=== PATIENT | female | born 1950 | race African-American/Black ===

== ENCOUNTER 2020-11-16 06:44 | Outpatient (REF) | payer MEDICARE, MEDICAID, SELFPAY ==
[2020-11-16 07:08] LABS: Hematocrit 32.2 % (37-47); Hemoglobin 10.4 g/dl (12.0-16.0); Mean Corpuscular HGB Conc 32.3 g/dl (31.0-35.0); Mean Corpuscular Hemoglobin 30.7 pg (27.0-33.0); Mean Platelet Volume 11.2 fL (9.4-12.3); Platelet Count 243 X10*3/uL (160-400); Red Blood Count 3.39 X10*6/uL (4.20-5.50); Red Cell Distribution Width 18.9 % (11.0-16.0); White Blood Count 5.9 X10*3/uL (4.8-10.8)
[2020-11-16 07:27] LABS: Anion Gap 16 (12-20); Blood Urea Nitrogen 22 mg/dL (9-16); Calcium 8.1 mg/dL (8.4-10.2); Carbon Dioxide 29 mmol/L (22-29); Chloride 98 mmol/L (96-108); Estimated Glomerular Filt Rate 11; Glucose Random 83 mg/dL (60-115); Potassium 4.1 mmol/L (3.3-5.1); Sodium 139 mmol/L (135-145)
== END 2020-11-16 06:45 | disposition home or self-care (01) ==
LOC: HO.MMNH1L 06:44
PROVIDERS: Visit Provider Family Medicine
DX: I11.0 Hypertensive heart disease with heart failure (principal); I50.9 Heart failure, unspecified
CPT/HCPCS: 36415; 80048; 85027

== ENCOUNTER 2020-11-23 00:35 | Outpatient (REF) | payer SELFPAY ==
[2020-11-23 07:48] LABS: Hematocrit 34.3 % (37-47); Mean Corpuscular HGB Conc 32.1 g/dl (31.0-35.0); Mean Corpuscular Hemoglobin 30.6 pg (27.0-33.0); Mean Corpuscular Volume 95.3 fL (80-98); Platelet Count 257 X10*3/uL (160-400); Red Cell Distribution Width 19.5 % (11.0-16.0); White Blood Count 6.1 X10*3/uL (4.8-10.8)
[2020-11-23 07:58] LABS: NRBC Pct Auto 1.3 /100WBC (0.0-0.2)
[2020-11-23 09:24] LABS: Anion Gap 17 (12-20); Blood Urea Nitrogen 33 mg/dL (9-16); Calcium 8.4 mg/dL (8.4-10.2); Carbon Dioxide 30 mmol/L (22-29); Chloride 97 mmol/L (96-108); Estimated Glomerular Filt Rate 8; Glucose Random 76 mg/dL (60-115); Potassium 4.6 mmol/L (3.3-5.1); Sodium 139 mmol/L (135-145)
== END 2020-11-23 00:36 | disposition home or self-care (01) ==
LOC: HO.MMNH1L 00:35
PROVIDERS: Visit Provider Family Medicine
DX: I11.0 Hypertensive heart disease with heart failure (principal); I50.9 Heart failure, unspecified
CPT/HCPCS: 36415; 80048; 85027; 85060

== ENCOUNTER 2020-11-30 10:36 | Outpatient (REF) | payer SELFPAY ==
[2020-11-30 07:53] LABS: Hematocrit 34.2 % (37-47); Hemoglobin 11.1 g/dl (12.0-16.0); Mean Corpuscular HGB Conc 32.5 g/dl (31.0-35.0); Mean Corpuscular Hemoglobin 31.2 pg (27.0-33.0); Mean Corpuscular Volume 96.1 fL (80-98); Platelet Count 234 X10*3/uL (160-400); Red Blood Count 3.56 X10*6/uL (4.20-5.50); Red Cell Distribution Width 20.9 % (11.0-16.0); White Blood Count 5.9 X10*3/uL (4.8-10.8)
[2020-11-30 08:27] LABS: NRBC Pct Auto 1.2 /100WBC (0.0-0.2)
[2020-11-30 10:16] LABS: Anion Gap 18 (12-20); Blood Urea Nitrogen 20 mg/dL (9-16); Calcium 8.2 mg/dL (8.4-10.2); Carbon Dioxide 27 mmol/L (22-29); Chloride 98 mmol/L (96-108); Estimated Glomerular Filt Rate 11; Glucose Random 99 mg/dL (60-115); Potassium 3.9 mmol/L (3.3-5.1); Sodium 139 mmol/L (135-145)
== END 2020-11-30 10:37 | disposition home or self-care (01) ==
LOC: HO.MMNH2L 10:36
PROVIDERS: Visit Provider Family Medicine
DX: I11.0 Hypertensive heart disease with heart failure (principal); I50.9 Heart failure, unspecified
CPT/HCPCS: 36415; 80048; 85027

== ENCOUNTER 2020-12-07 00:35 | Outpatient (REF) | payer SELFPAY ==
[2020-12-07 08:07] LABS: Hematocrit 34.6 % (37-47); Mean Corpuscular HGB Conc 31.8 g/dl (31.0-35.0); Mean Corpuscular Volume 97.5 fL (80-98); Mean Platelet Volume 11.3 fL (9.4-12.3); NRBC Pct Auto 0.7 /100WBC (0.0-0.2); Platelet Count 198 X10*3/uL (160-400); Red Blood Count 3.55 X10*6/uL (4.20-5.50); Red Cell Distribution Width 21.2 % (11.0-16.0); White Blood Count 5.8 X10*3/uL (4.8-10.8)
[2020-12-07 08:32] LABS: Anion Gap 19 (12-20); Blood Urea Nitrogen 16 mg/dL (9-16); Carbon Dioxide 27 mmol/L (22-29); Chloride 97 mmol/L (96-108); Estimated Glomerular Filt Rate 13; Glucose Random 74 mg/dL (60-115); Potassium 3.9 mmol/L (3.3-5.1); Sodium 139 mmol/L (135-145)
== END 2020-12-07 00:36 | disposition home or self-care (01) ==
LOC: HO.MMNH2L 00:35
PROVIDERS: Visit Provider Family Medicine
DX: I95.9 Hypotension, unspecified (principal); I50.9 Heart failure, unspecified
CPT/HCPCS: 36415; 80048; 85027

== ENCOUNTER 2020-12-14 01:07 | Outpatient (REF) | payer SELFPAY ==
[2020-12-14 06:49] LABS: Hematocrit 33.8 % (37-47); Hemoglobin 10.8 g/dl (12.0-16.0); Mean Corpuscular Hemoglobin 30.8 pg (27.0-33.0); Mean Corpuscular Volume 96.3 fL (80-98); Mean Platelet Volume 11.4 fL (9.4-12.3); NRBC Pct Auto 0.5 /100WBC (0.0-0.2); Platelet Count 180 X10*3/uL (160-400); Red Blood Count 3.51 X10*6/uL (4.20-5.50); Red Cell Distribution Width 20.7 % (11.0-16.0); White Blood Count 6.3 X10*3/uL (4.8-10.8)
[2020-12-14 07:57] LABS: Anion Gap 14 (12-20); Blood Urea Nitrogen 21 mg/dL (9-16); Calcium 7.9 mg/dL (8.4-10.2); Carbon Dioxide 30 mmol/L (22-29); Chloride 97 mmol/L (96-108); Estimated Glomerular Filt Rate 14; Glucose Random 78 mg/dL (60-115); Sodium 138 mmol/L (135-145)
== END 2020-12-14 01:08 | disposition home or self-care (01) ==
LOC: HO.MMNH2L 01:07
PROVIDERS: Visit Provider Family Medicine
DX: I50.9 Heart failure, unspecified (principal); I95.9 Hypotension, unspecified
CPT/HCPCS: 36415; 80048; 85027

== ENCOUNTER 2020-12-22 00:28 | Outpatient (REF) | payer SELFPAY ==
[2020-12-22 07:24] LABS: Hematocrit 34.3 % (37-47); Hemoglobin 11.2 g/dl (12.0-16.0); Mean Corpuscular HGB Conc 32.7 g/dl (31.0-35.0); Mean Platelet Volume 11.4 fL (9.4-12.3); NRBC Pct Auto 0.6 /100WBC (0.0-0.2); Platelet Count 220 X10*3/uL (160-400); Red Blood Count 3.61 X10*6/uL (4.20-5.50); Red Cell Distribution Width 20.3 % (11.0-16.0); White Blood Count 7.7 X10*3/uL (4.8-10.8)
[2020-12-22 07:25] LABS: Anion Gap 15 (12-20); Blood Urea Nitrogen 24 mg/dL (9-16); Carbon Dioxide 31 mmol/L (22-29); Chloride 96 mmol/L (96-108); Estimated Glomerular Filt Rate 12; Glucose Random 82 mg/dL (60-115); Potassium 3.7 mmol/L (3.3-5.1); Sodium 138 mmol/L (135-145)
== END 2020-12-22 00:29 | disposition home or self-care (01) ==
LOC: HO.MMNH2L 00:28
PROVIDERS: Visit Provider Family Medicine
DX: I50.9 Heart failure, unspecified (principal); I95.9 Hypotension, unspecified
CPT/HCPCS: 36415; 80048; 85027

== ENCOUNTER 2020-12-22 12:33 | Inpatient (IN) | payer MEDICARE, MEDICAID, SELFPAY ==
[2020-12-22] VITALS (19 sets, daily range): BP systolic 74–112; BP diastolic 28–73; PULSE 60–114; RESP 15–28; TEMP 36.2–36.6; O2SAT 85–98; BMI 14.0
--- NOTE | ~2020-12-22 | CT_ITS ---
EXAMINATION: CT HEAD WITHOUT CONTRAST CLINICAL INFORMATION: Acute mental status change. COMPARISON: None TECHNIQUE: Contiguous axial imaging was performed from the skull base to vertex without intravenous administration of contrast. This CT examination was performed using dose optimization techniques as appropriate, variously including the following: *Automated exposure control *Adjustment of mA and/or kV according to patient size (this includes techniques or standardized protocols for targeted exams where dose is matched to indication/reason for exam; i.e. extremities or head) *Use of iterative reconstruction technique DLP: 680 mGy-cm FINDINGS: There is no evidence of an extra-axial collection. There is no evidence of intra-axial or extra-axial hemorrhage. Ventricles and extra-axial CSF spaces are slightly prominent suggestive of mild generalized atrophy. There is nonspecific periventricular white matter disease. There is a left periventricular and subcortical white matter infarct that appears old. There is also question of an old right cerebellar infarct. No mass, mass effect or acute infarct is seen. Review at bone windows demonstrates no skull fracture or bone lesion. There is soft tissue opacification of the right mastoid air cells and middle ears. There is some soft tissue opacification of the left mastoid air cells as well. Left middle ear and visualized paranasal sinuses are clear. CT/CT head/brain wo con IMPRESSION: Old left frontal infarct and question old small right cerebellar infarct. Right otomastoiditis.
--- NOTE | ~2020-12-22 | CT_ITS ---
EXAMINATION: CT CHEST WITHOUT CONTRAST CLINICAL INFORMATION: Dyspnea. COMPARISON: None TECHNIQUE: Multidetector volumetric CT imaging of the chest was done. Axial MIP volume rendering provided. Sagittal and coronal reformatted images were obtained. This CT examination was performed using dose optimization techniques as appropriate, variously including the following: *Automated exposure control *Adjustment of mA and/or kV according to patient size (this includes techniques or standardized protocols for targeted exams where dose is matched to indication/reason for exam; i.e. extremities or head) *Use of iterative reconstruction technique DLP: 287 mGy-cm FINDINGS: DISASTER RECOVERY SPECIALIST: Well-expanded lungs. LUNGS: The lungs are hypoexpanded with moderate bilateral pleural effusions and underlying lower lobe atelectasis. The effusion is slightly greater on the right. The upper lungs are expanded with patchy atelectatic changes in both upper lobes. MEDIASTINUM: The heart size is enlarged with dense mitral valve calcification. There is pacer electrode in the right ventricle. PLEURA: There is moderate bilateral pleural effusions. AXILLA: No abnormal axillary lymph nodes seen. UPPER ABDOMEN: Visualized liver, spleen appears unremarkable. There is diffuse ascites. OSSEOUS STRUCTURES: There is moderate ventral spondylosis mid and lower dorsal spine. No lytic or sclerotic process seen. CT/CT chest wo con IMPRESSION: Moderate bilateral pleural effusions with underlying bibasilar atelectasis. Minimal atelectatic changes also visualized in both upper lobes. Cardiomegaly without pericardial effusion. Moderate diffuse ascites.
--- NOTE | ~2020-12-22 | XR_ITS ---
EXAMINATION: XR CHEST CLINICAL INFORMATION: Acute mental status change COMPARISON: None TECHNIQUE: 1 view of the chest was obtained. FINDINGS: The patient is rotated to the right. The heart may be enlarged. There is a right subclavian pacemaker defibrillator. The thoracic aorta may be tortuous. The lung volumes are low. There is atelectasis or infiltrate seen at the right cardiophrenic angle. There are multiple clustered round calcifications projecting over the medial left lower lobe/mediastinum questionable for calcified lymph nodes. The lungs are otherwise clear. There is no pleural effusion or pneumothorax. There are degenerative changes of the spine. There is a vascular stent in the left arm. There are old right-sided rib fractures. XR/XR chest 1V IMPRESSION: Limited exam. The patient is rotated to the right. The heart may be enlarged in the thoracic aorta may be tortuous. Abnormal density at the right cardiophrenic angle questionable for atelectasis or infiltrate. Clustered rounded calcifications at the left lung base questionable for calcified mediastinal lymph nodes.
--- NOTE | 2020-12-22 12:40 | ED.AMS ---
HPI - Altered Mental Status General Chief Complaint: Weakness Stated Complaint: LETHARGY FROM DIALYSIS Time Seen by Provider: 12/22/20 12:36 Source: patient and EMS Mode of arrival: EMS Limitations: altered mental status History of Present Illness HPI narrative: 70 yo female with ESRD on HD T S, PVD, severe dementia, HTN no AC therapy she is DNR/DNI per her daughter Monday patient was more sleepy yesterday sent to HD today she was too sleepy to continue treatment had 1 hour and they noted her BP was 60s, EMS found her BP to be increasing 89/40s and pateint was coming around, she is on percocet and ativan, no trauma reported MD complaint: altered mental status Onset (ago): day(s) (?yesterday) Timing confirmed by: caregiver Severity: moderate Consistency of symptoms: getting Worse Context: history of similar presentation Associated symptoms: malaise Related Data Home Medications Medication Instructions Recorded Confirmed acetaminophen 2 tab PO Q6H PRN 12/22/20 12/22/20 aspirin 81 mg PO DAILY 12/22/20 12/22/20 bisacodyl [Dulcolax (bisacodyl)] 1 supp SC Q72H PRN 12/22/20 12/22/20 ferric citrate [Auryxia] 210 mg PO SUMOWEFR@08,12,17 12/22/20 12/22/20 ferric citrate [Auryxia] 210 mg PO TUTHSA@08,17 12/22/20 12/22/20 gabapentin 1 cap PO TID 12/22/20 12/22/20 hydroxyzine HCl 1 tab PO Q12H PRN 12/22/20 12/22/20 lactulose 30 ml PO BID PRN 12/22/20 12/22/20 lorazepam 0.5 mg PO Q8H PRN 12/22/20 12/22/20 lorazepam 0.5 mg PO TUTHSA 12/22/20 12/22/20 midodrine 10 mg PO TID 12/22/20 12/22/20 oxycodone-acetaminophen 1 tab PO TID PRN 12/22/20 12/22/20 sennosides [senna] 2 tab PO BEDTIME PRN 12/22/20 12/22/20 sertraline 1 tab PO SUMOWEFR@09 12/22/20 12/22/20 sertraline 1 tab PO TUTHSA@,12/22/20 12/22/20 umeclidinium [Incruse Ellipta] 1 puff INHALATION DAILY 12/22/20 12/22/20 vitamin B complex [B-Complex] 1 tab PO DAILY 12/22/20 12/22/20 Allergies Allergy/AdvReac Type Severity Reaction Status Date / Time fluoxetine Allergy Unknown Unknown Verified 12/22/20 12:46 latex Allergy Unknown Unknown Verified 12/22/20 12:47 Review of Systems Review of Systems: ROS unable to be obtained due to altered mental status [facility] Past Medical History Attestation statement: The following information was validated with the patient. Source: old records reviewed Medical History Dementia ESRD (end stage renal disease) HLD (hyperlipidemia) HTN (hypertension) Pacemaker PVD (peripheral vascular disease) Social History Social History (Updated 12/22/20 @ 13:20 by Philomena Gutiérrez DO) Patient Tobacco Use Status: Tobacco use Unknown Use of substances other than those prescribed or required for medical reasons: No Advance Directives: No Advance Directives Information Provided: No Physical Exam Vital Signs: Vital Signs: Last Vital Signs Temp 98 F 12/22/20 13:20 Pulse 93 12/22/20 15:31 Resp 24 H 12/22/20 15:27 BP 112/73 12/22/20 15:27 Pulse Ox 94 12/22/20 15:27 Body Mass Index 14.0 Appearance: Moderate distress, somnolent, oriented to self, follows commands, wakens to voice Eyes: pinpoint pupils ENT: Pharynx dry MM Neck: Normal inspection. Neck supple. CVS: irregular rhythm, decreased pulses throughout, dusky fingers and toes Respiratory: tachypneic Breath sounds decreased throughout Abdomen: Soft and nontender. Skin: Skin warm and dry. Normal skin color. Normal skin turgor. Extremities: No lower extremity edema. No calf ttp Neuro: Oriented X 1. moves extremities, follows commands. No sensory deficit. Course Course Course Narrative: BP improving - pateint also much more awake and alert following narcan dose compensated ABG 256pm at this time possible infection suspected - cefepime ordered, the patient wakes up after doses of narcan, due for her PO midodrine call to daughter requesting she come to bedside given patient is ill 3pm she is DNR/DNI but daughter unsure what else she would want done at this time such as pressors if necessary, patient will not tolerate bipap with her severe dementia repeat doses of narcan ordered after 0.4mg narcan she is awake and agitated diff to get O2 sat now, she has audible wheezes at times, neb ordered total dose 0.8mg in 3.5 hours waiting for family discussion at this time patient now talking to her daughter appears at baseline extensive discussion with daughters Maddi and Suzanna - okay with antibiotics, no Bipap, no central line, no pressors, no fluids, no CPR - hospitalists aware MDM - Altered Mental Status MDM Narrative Medical decision making narrative: 70 yo female with ESRD on HD T , PVD, severe dementia, HTN no AC therapy she is DNR/DNI per her daughter Monday patient was more sleepy yesterday sent to HD today she was too sleepy to continue treatment had 1 hour and they noted her BP was 60s, EMS found her BP to be increasing 89/40s and pateint was coming around, she is on percocet and ativan, no trauma reported at this time the patient - will obtain labs, ABG, CT head for ICH, given dextrose and narcan given pinpoint pupils, dispo per results and findings Lab Data Result diagrams: 12/22/20 12:59 12/22/20 13:43 Labs: Lab Results 12/22/20 12/22/20 12/22/20 Range/Units 12:46 12:57 12:59 WBC 8.0 (4.8-10.8) X10*3/uL RBC 3.84 L (4.20-5.50) X10*6/uL Hgb 11.9 L (12.0-16.0) g/dl Hct 37.0 (37-47) % MCV 96.4 (80-98) fL MCH 31.0 (27.0-33.0) pg MCHC 32.2 (31.0-35.0) g/dl RDW 20.6 H (11.0-16.0) % Plt Count 208 (160-400) X10*3/uL MPV 11.2 (9.4-12.3) fL Immature Gran % (Auto) 0.5 H (0.0-0.4) % Neut % (Auto) 72.3 (45-73) % Lymph % (Auto) 14.7 L (20-40) % Robertson % (Auto) 10.4 (2-11) % Eos % (Auto) 1.6 (0-4) % Baso % (Auto) 0.5 (0-2) % Lymph # (Auto) 1.2 (1.2-4.9) X10*3/uL Robertson # (Auto) 0.8 (0.1-1.2) X10*3/uL Eos # (Auto) 0.1 (0.0-0.4) X10*3/uL Baso # (Auto) 0.0 (0.0-0.2) X10*3/uL Abs Immat Gran (auto) 0.04 H (0.00-0.03) X10*3/uL Absolute Neuts (auto) 5.8 (2.0-8.3) X10*3/uL Absolute Nucleated RBC 0.050 H (0.0-0.012) X10*3/uL Nucleated RBC % (auto) 0.6 H (0.0-0.2) /100WBC PT (10.8-13.0) SEC INR (0.9-1.1) APTT (24.1-38.0) SEC O2 Saturation % ABG pH at Pt Temp (7.35-7.45) ABG pH (Temp Correct) (7.35-7.45) ABG pCO2 at Pt Temp (32-45) mmHg ABG pCO2 (Temp Corrct (32-45) mmHg ABG pO2 at Pt Temp (83-108) mmHg ABG pO2 (Temp Correct (83-108) ABG HCO3 (22-26) mmol/L ABG Base Excess (Actual) mmol/L VBG pH (7.32-7.43) VBG pCO2 mmHg VBG pO2 mmHg VBG HCO3 (22-26) mmol/L VBG O2 Saturation % VBG Base Excess mmol/L Sodium (135-145) mmol/L Potassium (3.3-5.1) mmol/L Chloride (96-108) mmol/L Carbon Dioxide (22-29) mmol/L Anion Gap (12-20) BUN (9-16) mg/dL Creatinine (0.5-1.4) mg/dL Estim Creat Clear Calc Estimated GFR POC Glucose 69 (60-115) mg/dL Random Glucose (60-115) mg/dL Lactic Acid (0.5-2.0) mmol/L Calcium (8.4-10.2) mg/dL Magnesium (1.6-2.6) mg/dL Total Bilirubin (0.0-1.0) mg/dL Direct Bilirubin (0.0-0.5) mg/dL AST (5-31) U/L ALT (0-31) U/L Alkaline Phosphatase (39-117) U/L Ammonia (13-55) umol/L Troponin I High Sens (<3.5-17.0) ng/L Total Protein (6.5-8.0) g/dL Albumin (3.5-5.0) g/dL Lipase (8-78) U/L COVID-19 (PAUL) Negative (Negative) COVID-19 Clin Com See Note 12/22/20 12/22/20 12/22/20 Range/Units 12:59 12:59 12:59 WBC (4.8-10.8) X10*3/uL RBC (4.20-5.50) X10*6/uL Hgb (12.0-16.0) g/dl Hct (37-47) % MCV (80-98) fL MCH (27.0-33.0) pg MCHC (31.0-35.0) g/dl RDW (11.0-16.0) % Plt Count (160-400) X10*3/uL MPV (9.4-12.3) fL Immature Gran % (Auto) (0.0-0.4) % Neut % (Auto) (45-73) % Lymph % (Auto) (20-40) % Robertson % (Auto) (2-11) % Eos % (Auto) (0-4) % Baso % (Auto) (0-2) % Lymph # (Auto) (1.2-4.9) X10*3/uL Robertson # (Auto) (0.1-1.2) X10*3/uL Eos # (Auto) (0.0-0.4) X10*3/uL Baso # (Auto) (0.0-0.2) X10*3/uL Abs Immat Gran (auto) (0.00-0.03) X10*3/uL Absolute Neuts (auto) (2.0-8.3) X10*3/uL Absolute Nucleated RBC (0.0-0.012) X10*3/uL Nucleated RBC % (auto) (0.0-0.2) /100WBC PT 16.1 H (10.8-13.0) SEC INR 1.4 H (0.9-1.1) APTT 38.4 H (24.1-38.0) SEC O2 Saturation % ABG pH at Pt Temp (7.35-7.45) ABG pH (Temp Correct) (7.35-7.45) ABG pCO2 at Pt Temp (32-45) mmHg ABG pCO2 (Temp Corrct (32-45) mmHg ABG pO2 at Pt Temp (83-108) mmHg ABG pO2 (Temp Correct (83-108) ABG HCO3 (22-26) mmol/L ABG Base Excess (Actual) mmol/L VBG pH (7.32-7.43) VBG pCO2 mmHg VBG pO2 mmHg VBG HCO3 (22-26) mmol/L VBG O2 Saturation % VBG Base Excess mmol/L Sodium (135-145) mmol/L Potassium (3.3-5.1) mmol/L Chloride (96-108) mmol/L Carbon Dioxide (22-29) mmol/L Anion Gap (12-20) BUN (9-16) mg/dL Creatinine (0.5-1.4) mg/dL Estim Creat Clear Calc Estimated GFR POC Glucose (60-115) mg/dL Random Glucose (60-115) mg/dL Lactic Acid (0.5-2.0) mmol/L Calcium (8.4-10.2) mg/dL Magnesium (1.6-2.6) mg/dL Total Bilirubin (0.0-1.0) mg/dL Direct Bilirubin (0.0-0.5) mg/dL AST (5-31) U/L ALT (0-31) U/L Alkaline Phosphatase (39-117) U/L Ammonia 42 (13-55) umol/L Troponin I High Sens 342.5 H* (<3.5-17.0) ng/L Total Protein (6.5-8.0) g/dL Albumin (3.5-5.0) g/dL Lipase (8-78) U/L COVID-19 (PAUL) (Negative) COVID-19 Clin Com 12/22/20 12/22/20 12/22/20 Range/Units 13:05 13:36 13:43 WBC (4.8-10.8) X10*3/uL RBC (4.20-5.50) X10*6/uL Hgb (12.0-16.0) g/dl Hct (37-47) % MCV (80-98) fL MCH (27.0-33.0) pg MCHC (31.0-35.0) g/dl RDW (11.0-16.0) % Plt Count (160-400) X10*3/uL MPV (9.4-12.3) fL Immature Gran % (Auto) (0.0-0.4) % Neut % (Auto) (45-73) % Lymph % (Auto) (20-40) % Robertson % (Auto) (2-11) % Eos % (Auto) (0-4) % Baso % (Auto) (0-2) % Lymph # (Auto) (1.2-4.9) X10*3/uL Robertson # (Auto) (0.1-1.2) X10*3/uL Eos # (Auto) (0.0-0.4) X10*3/uL Baso # (Auto) (0.0-0.2) X10*3/uL Abs Immat Gran (auto) (0.00-0.03) X10*3/uL Absolute Neuts (auto) (2.0-8.3) X10*3/uL Absolute Nucleated RBC (0.0-0.012) X10*3/uL Nucleated RBC % (auto) (0.0-0.2) /100WBC PT (10.8-13.0) SEC INR (0.9-1.1) APTT (24.1-38.0) SEC O2 Saturation 89.0 % ABG pH at Pt Temp 7.40 (7.35-7.45) ABG pH (Temp Correct) 7.41 (7.35-7.45) ABG pCO2 at Pt Temp 53 H (32-45) mmHg ABG pCO2 (Temp Corrct 52 H (32-45) mmHg ABG pO2 at Pt Temp 66 L (83-108) mmHg ABG pO2 (Temp Correct 65 L (83-108) ABG HCO3 33 H (22-26) mmol/L ABG Base Excess (Actual) 7.7 mmol/L VBG pH 7.34 (7.32-7.43) VBG pCO2 72 mmHg VBG pO2 40 mmHg VBG HCO3 39 H (22-26) mmol/L VBG O2 Saturation 57.0 % VBG Base Excess 10.1 mmol/L Sodium 135 (135-145) mmol/L Potassium 5.7 H D (3.3-5.1) mmol/L Chloride 97 (96-108) mmol/L Carbon Dioxide 25 (22-29) mmol/L Anion Gap 19 (12-20) BUN 20 H (9-16) mg/dL Creatinine 3.44 H (0.5-1.4) mg/dL Estim Creat Clear Calc 8.3 Estimated GFR 13 POC Glucose (60-115) mg/dL Random Glucose 176 H D (60-115) mg/dL Lactic Acid (0.5-2.0) mmol/L Calcium 7.7 L (8.4-10.2) mg/dL Magnesium (1.6-2.6) mg/dL Total Bilirubin (0.0-1.0) mg/dL Direct Bilirubin (0.0-0.5) mg/dL AST (5-31) U/L ALT (0-31) U/L Alkaline Phosphatase (39-117) U/L Ammonia (13-55) umol/L Troponin I High Sens (<3.5-17.0) ng/L Total Protein (6.5-8.0) g/dL Albumin (3.5-5.0) g/dL Lipase (8-78) U/L COVID-19 (PAUL) (Negative) COVID-19 Clin Com 12/22/20 12/22/20 12/22/20 Range/Units 13:43 13:43 14:36 WBC (4.8-10.8) X10*3/uL RBC (4.20-5.50) X10*6/uL Hgb (12.0-16.0) g/dl Hct (37-47) % MCV (80-98) fL MCH (27.0-33.0) pg MCHC (31.0-35.0) g/dl RDW (11.0-16.0) % Plt Count (160-400) X10*3/uL MPV (9.4-12.3) fL Immature Gran % (Auto) (0.0-0.4) % Neut % (Auto) (45-73) % Lymph % (Auto) (20-40) % Robertson % (Auto) (2-11) % Eos % (Auto) (0-4) % Baso % (Auto) (0-2) % Lymph # (Auto) (1.2-4.9) X10*3/uL Robertson # (Auto) (0.1-1.2) X10*3/uL Eos # (Auto) (0.0-0.4) X10*3/uL Baso # (Auto) (0.0-0.2) X10*3/uL Abs Immat Gran (auto) (0.00-0.03) X10*3/uL Absolute Neuts (auto) (2.0-8.3) X10*3/uL Absolute Nucleated RBC (0.0-0.012) X10*3/uL Nucleated RBC % (auto) (0.0-0.2) /100WBC PT (10.8-13.0) SEC INR (0.9-1.1) APTT (24.1-38.0) SEC O2 Saturation % ABG pH at Pt Temp (7.35-7.45) ABG pH (Temp Correct) (7.35-7.45) ABG pCO2 at Pt Temp (32-45) mmHg ABG pCO2 (Temp Corrct (32-45) mmHg ABG pO2 at Pt Temp (83-108) mmHg ABG pO2 (Temp Correct (83-108) ABG HCO3 (22-26) mmol/L ABG Base Excess (Actual) mmol/L VBG pH (7.32-7.43) VBG pCO2 mmHg VBG pO2 mmHg VBG HCO3 (22-26) mmol/L VBG O2 Saturation % VBG Base Excess mmol/L Sodium (135-145) mmol/L Potassium (3.3-5.1) mmol/L Chloride (96-108) mmol/L Carbon Dioxide (22-29) mmol/L Anion Gap (12-20) BUN (9-16) mg/dL Creatinine (0.5-1.4) mg/dL Estim Creat Clear Calc Estimated GFR POC Glucose 134 H (60-115) mg/dL Random Glucose (60-115) mg/dL Lactic Acid 2.6 H* (0.5-2.0) mmol/L Calcium (8.4-10.2) mg/dL Magnesium 1.9 (1.6-2.6) mg/dL Total Bilirubin 2.6 H (0.0-1.0) mg/dL Direct Bilirubin 1.5 H (0.0-0.5) mg/dL AST 33 H D (5-31) U/L ALT 16 (0-31) U/L Alkaline Phosphatase 73 (39-117) U/L Ammonia (13-55) umol/L Troponin I High Sens (<3.5-17.0) ng/L Total Protein 7.5 (6.5-8.0) g/dL Albumin 2.5 L D (3.5-5.0) g/dL Lipase 9 (8-78) U/L COVID-19 (PAUL) (Negative) COVID-19 Clin Com ECG Data ECG #1: Attestation: I personally reviewed and interpreted this ECG as follows: ECG interpretation date: 12/22/20 ECG interpretation time: 13:31 Interpretation: Rate: 68 Rhythm: ?intermittent paced then underlying ?junctional [place]: normal wide QRS complex. ST T wave : no MARIAH, nonspecific, inverted in lateral leads qTC: prolonged prior studies: none available The study has been interpreted contemporaneously by me. . Critical Care Time Critical Care Time Critical Care Time: Yes Total Critical Care Time: 60 Attestation: repeat bedside assessments, extensive family discussion review of records I attest to this time spent taking care of the patient Discharge Plan Discharge Clinical Impression: ESRD (end stage renal disease) on dialysis, Acidosis, lactic Altered mental status Qualifiers: Altered mental status type: unspecified Qualified Code(s): R41.82 - Altered mental status, unspecified Patient Disposition: Admitted As Inpatient
--- NOTE | 2020-12-22 12:48 | ECG_ITS ---
Test Reason : WEAKNESS Blood Pressure : / mmHG Vent. Rate : 068 BPM Atrial Rate : 075 BPM P-R Int : 000 ms QRS Dur : 110 ms QT Int : 472 ms P-R-T Axes : 000 089 -72 degrees QTc Int : 501 ms Poor data quality Ventricular-paced rhythm with occasional supraventricular complexes and with premature ventricular or aberrantly conducted complexes Abnormal ECG No previous ECGs available Referred By: Philomena Gutiérrez Electronically Signed By:Boo King
[2020-12-22 12:50] LABS: Glucose, Whole Blood 69 mg/dL (60-115)
[2020-12-22 13:06] LABS: MANUAL DIFF FLAG NO
[2020-12-22 13:10] LABS: Basophils Percent Auto 0.5 % (0-2); Eosinophils Absolute Auto 0.1 X10*3/uL (0.0-0.4); Eosinophils Percent Auto 1.6 % (0-4); Hemoglobin 11.9 g/dl (12.0-16.0); Imm Gran Abs Auto 0.04 X10*3/uL (0.00-0.03); Imm Gran Pct Auto 0.5 % (0.0-0.4); Lymphocytes Absolute Auto 1.2 X10*3/uL (1.2-4.9); Lymphocytes Percent Auto 14.7 % (20-40); Mean Corpuscular HGB Conc 32.2 g/dl (31.0-35.0); Mean Corpuscular Volume 96.4 fL (80-98); Mean Platelet Volume 11.2 fL (9.4-12.3); Monocytes Absolute Auto 0.8 X10*3/uL (0.1-1.2); Monocytes Percent Auto 10.4 % (2-11); NRBC Pct Auto 0.6 /100WBC (0.0-0.2); Neutrophils Absolute Auto 5.8 X10*3/uL (2.0-8.3); Neutrophils Percent Auto 72.3 % (45-73); Platelet Count 208 X10*3/uL (160-400); Red Blood Count 3.84 X10*6/uL (4.20-5.50); Red Cell Distribution Width 20.6 % (11.0-16.0)
[2020-12-22 13:13] LABS: Venous Blood Gas Refer to POC result
[2020-12-22 13:13] LABS: VBG Base Excess 10.1 mmol/L; VBG HCO3 39 mmol/L (22-26); VBG pCO2 72 mmHg; VBG pH 7.34 (7.32-7.43); VBG pO2 40 mmHg
[2020-12-22 13:17] LABS: INTERNATIONAL NORM RATIO 1.4 (0.9-1.1); Prothrombin Time 16.1 SEC (10.8-13.0)
[2020-12-22] MEDS: Naloxone HCl 0.4 MG/ML VIAL 0.2 MG IVPUSH ×2 (13:19→14:42)
[2020-12-22 13:21] LABS: Partial Thromboplastin Time 38.4 SEC (24.1-38.0)
[2020-12-22 13:25] LABS: COVID-19 Test Negative (Negative); IDNOW Serial# 9DD0AD1C
[2020-12-22 13:31] LABS: Ammonia 42 umol/L (13-55)
[2020-12-22 13:42] LABS: ABG Refer to POC result
[2020-12-22 13:43] LABS: ABG Base Excess 7.7 mmol/L; ABG HCO3 33 mmol/L (22-26); ABG pCO2 53 mmHg (32-45); ABG pCO2 TC 52 mmHg (32-45); ABG pH TC 7.41 (7.35-7.45); ABG pO2 66 mmHg (83-108); ABG pO2 TC 65 (83-108)
[2020-12-22 14:27] LABS: Lactic Acid 2.6 mmol/L (0.5-2.0)
[2020-12-22 14:28] LABS: Anion Gap 19 (12-20); Blood Urea Nitrogen 20 mg/dL (9-16); Calcium 7.7 mg/dL (8.4-10.2); Carbon Dioxide 25 mmol/L (22-29); Chloride 97 mmol/L (96-108); Creatinine Clr Calc Pharmacy 8.3; Estimated Glomerular Filt Rate 13; Glucose Random 176 mg/dL (60-115); Potassium 5.7 mmol/L (3.3-5.1); Sodium 135 mmol/L (135-145)
[2020-12-22 14:30] LABS: Alanine Aminotransferase 16 U/L (0-31); Albumin Level 2.5 g/dL (3.5-5.0); Alkaline Phosphatase 73 U/L (39-117); Aspartate Amino Transferase 33 U/L (5-31); Bilirubin Direct 1.5 mg/dL (0.0-0.5); Bilirubin Total 2.6 mg/dL (0.0-1.0); Lipase 9 U/L (8-78); Magnesium 1.9 mg/dL (1.6-2.6); Total Protein 7.5 g/dL (6.5-8.0)
[2020-12-22 14:42] LABS: Glucose, Whole Blood 134 mg/dL (60-115)
[2020-12-22] MEDS: Calcium Gluconate/NaCl,Iso-Osm 2 GM/100 ML PLAST..BAG IV (14:42)
--- NOTE | 2020-12-22 15:15 | PC.NURSE ---
Doctor at bedside. Non-rebreather placed on patient. Pt calling out for her mom and dad
[2020-12-22] MEDS: Albuterol Sulfate (0.083%) 2.5 MG/3 ML VIAL.NEB INHALE (15:29)
--- NOTE | 2020-12-22 15:45 | PC.NURSE ---
Daughter is at bedside. the rest of the children are coming to speak with doctor. Patient wet brief removed.
[2020-12-22 15:51] LABS: Reflex Lactate? Lactic Acid Added
[2020-12-22 16:27] LABS: Troponin-I High Sensitivity 342.5 ng/L (<3.5-17.0)
--- NOTE | 2020-12-22 16:50 | PC.NURSE ---
Doctor at bedside going over family wishes for patient care.
[2020-12-22] MEDS: cefEPime HCl 1 GM in 0.9 % Sodium Chloride 50 ML IV (17:00)
--- NOTE | 2020-12-22 17:14 | PC.NURSE ---
Patient is lying in bed with daughters at bedside. Pt remains on a non-rebreather. pt is drowsy but does respond to daughters calling her name.
[2020-12-22] MEDS: vancomycin HCL 750 MG in 0.9 % Sodium Chloride 250 ML 265 MG IV (17:50)
[2020-12-22] MEDS: Midodrine HCl 10 MG TABLET PO (18:08)
[2020-12-22] MEDS: Albumin Human 25 % 100 ML IV ×2 (18:42→19:32)
[2020-12-22 19:00] LABS: ~Lactic Acid-LAB USE ONLY 2.1 mmol/L (0.5-2.0)
--- NOTE | 2020-12-22 19:15 | PC.NURSE ---
ASSUMED CARE OF PT. PT RESTING IN STRETCHER, WAKES TO VOICE AND FALLS BACK TO SLEEP. ALBUMIN AND VANCO UP AND RUNNING ON PUMPS INTO RWRIST AREA, SITE INTACT AND LEFT EJ, SITE INTACT. UNABLE TO GET PO AND MD AWARE. PT ON MONITOR WITH HR 61, RESPIRATIONS N/L ON NRB WITH RESPIRATIONS 16. B/P HAS BEEN RUNNING 70/40'S MD AWARE OF B/P. PT HAS A DRESSING TO LEFT UPPER ARM INTACT. NO EDEMA NOTED TO FABIÁN LE. PT AWAITING FOR NARCAN DRIP AND 2ND BOTTLE OF ALBUMIN. WILL CONTINUE TO MONITOR PT.
--- NOTE | 2020-12-22 19:32 | PC.NURSE ---
ALBUMIN AND VANCO INFUSED W/O DIFFICULTY. 2ND BOTTLE OF ALBUMIN AND NARCAN DRIP STATED PER EMAR. HOSPITALIST AWAITING FOR MEDS TO INFUSE PER MD. PT WAKES TO VOICE, FAMILY REMAINS AT BEDSIDE AND AWAITING FOR FURTHER ORDERS. WILL CONTINUE TO MONITOR PT.
[2020-12-22 20:33] LABS: Reflex Lactate? 2 Y
--- NOTE | 2020-12-22 21:28 | PC.NURSE ---
ALBUMIN INFUSED W/O MD HARRY AWARE.
--- NOTE | 2020-12-22 21:48 | P.HPCC_ITS ---
History of Present Illness Date of Service: 12/22/20 Chief Complaint: AMS, weakness This is a 70-year-old female with a past medical history of end-stage renal dialysis ( HD T, , S), peripheral vascular disease, pacemaker, severe dementia, hypertension, heart failure, and COPD who presented to the emergency room weakness. Today during dialysis the patient was noted to be altered, sleepy, weak and unable to tolerate dialysis after 1 hour with SBP in the 60s. It was also noted that the patient was on Percocet and Ativan at home. On arrival to the emergency room patient placed on non-rebreather, tach ycardic with pulse in the 114. Initially her blood pressure was normotensive, but became hypotensive to 70s. In the emergency room she received midodrine 10 mg x 3, cefepime, vancomycin, ,Calcium gluconate, Narcan 0.4 IV push, Narcan drip, albumin 200 mL as well as 500 mL bolus. Laboratory data significant for potassium of 5.7, BUN 20, creatinine 3.44, lactic acid of 2.6, calcium 7.7, total bilirubin 2.6, AST 33, albumin 2.5, troponin of 342. Imaging: Head CT: No acute findings Chest x-ray: . Abnormal density at the right cardiophrenic angle questionable for atelectasis or infiltrate. Clustered rounded calcifications at the left lung base questionable for calcified mediastinal lymph nodes. ED physicians performed goals of care with family, family decided to make patient DNR/DNI. They agree to noninvasive measures a CPAP/BiPAP and vasopressors. Patient will be admitted to the ICU for hypotension requiring vasopressor support Review of Systems Review of Systems: Unable to perform, patient AMS Neurologic: Reports Abnormal speech present and Reports confusion Psychiatric: Psychiatric: Reports confusion [facility] Past Medical History Medical History Dementia ESRD (end stage renal disease) HLD (hyperlipidemia) HTN (hypertension) Pacemaker PVD (peripheral vascular disease) Social History Social History (Updated 12/22/20 @ 13:20 by Philomena Gutiérrez DO) Patient Tobacco Use Status: Tobacco use Unknown Meds Allergies Allergy/AdvReac Type Severity Reaction Status Date / Time fluoxetine Allergy Unknown Unknown Verified 12/22/20 12:46 latex Allergy Unknown Unknown Verified 12/22/20 12:47 Active Medications: Current Medications Generic Name Dose Route Start Last Admin Trade Name Mgq PRN Reason Stop Dose Admin Acetaminophen 650 mg 12/22/20 21:44 Acetaminophen 325 Mg Tablet PO Q6H PRN pain Aspirin 81 mg 12/23/20 09:00 Aspirin 81 Mg Tab.Chew PO DAILY [facility] Naloxone HCl 5 mg/ Dextrose 105 mls @ 10.5 mls/hr 12/22/20 18:30 12/22/20 19:27 IV 0.5 mg/hr .Q10H SONNY 10.5 mls/hr Administration 0.5 MG/HR Phenylephrine HCl 20 mg/ 252 mls @ 0 mls/hr 12/22/20 21:45 Sodium Chloride IVCONT .Q0M [facility] Protocol Per Protocol Non-Formulary Medication 1 puff 12/23/20 09:00 Umeclidinium [Incruse Ellipta] INHALE DAILY [facility] Pharmacy Consult 1 each 12/22/20 12:47 Consult Rx Perform Med Rec MISCELLANE ONCE PRN Consult order Home Medications Medication Instructions Recorded Confirmed Last Taken Type acetaminophen 2 tab PO Q6H PRN 12/22/20 12/22/20 Unknown History aspirin 81 mg PO DAILY 12/22/20 12/22/20 Unknown History bisacodyl [Dulcolax (bisacodyl)] 1 supp [place] Q72H PRN 12/22/20 12/22/20 Unknown History ferric citrate [Auryxia] 210 mg PO SUMOWEFR@08,12,17 12/22/20 12/22/20 Unknown History ferric citrate [Auryxia] 210 mg PO TUTHSA@08,17 12/22/20 12/22/20 Unknown History gabapentin 1 cap PO TID 12/22/20 12/22/20 Unknown History hydroxyzine HCl 1 tab PO Q12H PRN 12/22/20 12/22/20 Unknown History lactulose 30 ml PO BID PRN 12/22/20 12/22/20 Unknown History lorazepam 0.5 mg PO Q8H PRN 12/22/20 12/22/20 Unknown History lorazepam 0.5 mg PO TUTHSA 12/22/20 12/22/20 Unknown History midodrine 10 mg PO TID 12/22/20 12/22/20 Unknown History oxycodone-acetaminophen 1 tab PO TID PRN 12/22/20 12/22/20 Unknown History sennosides [senna] 2 tab PO BEDTIME PRN 12/22/20 12/22/20 Unknown History sertraline 1 tab PO SUMOWEFR@09 12/22/20 12/22/20 Unknown History sertraline 1 tab PO TUTHSA@12/22/20 12/22/20 Unknown History umeclidinium [Incruse Ellipta] 1 puff INHALATION DAILY 12/22/20 12/22/20 Unknown History vitamin B complex [B-Complex] 1 tab PO DAILY 12/22/20 12/22/20 Unknown History Physical Exam Vital Signs: Vital Signs: Last Vital Signs Temp 97.8 F 12/22/20 21:31 Pulse 97 12/22/20 21:31 Resp 16 12/22/20 21:31 BP 88/57 L 12/22/20 21:31 Pulse Ox 97 12/22/20 17:12 Body Mass Index 14.0 Const: General: alert, confusion and lethargic Orientation/consciousness: oriented to person, confusion and lethargic Eyes: Pupils: Equal, round and reactive pupils present Neck: Neck: Yes supple Resp: Effort & Inspection: normal respiratory effort and tachypneic Auscultation: diminished lung sounds Cardio: Other: vpaced Jugular venous distension: no JVD Heart sounds: S1 normal heart sound present and S2 normal heart sound present Peripheral pulses: Peripheral pulses 2+ throughout GI: Palpation (GI): Soft to palpation Auscultation: normal bowel sounds Neuro: General: oriented to person and confusion Cranial nerves: Yes Equal, round and reactive pupils present Speech: Abnormal speech present Extrem: Right upper extremity: no edema Results Labs CBC and Chem 7: 12/22/20 21:57 12/22/20 21:57 Labs: Laboratory Results - last 24 hr 12/22/20 12/22/20 12/22/20 12:46 12:57 12:59 MCV 96.4 MCH 31.0 MCHC 32.2 RDW 20.6 H Plt Count 208 MPV 11.2 Immature Gran % (Auto) 0.5 H Neut % (Auto) 72.3 Lymph % (Auto) 14.7 L Catron % (Auto) 10.4 Eos % (Auto) 1.6 Baso % (Auto) 0.5 Lymph # (Auto) 1.2 Catron # (Auto) 0.8 Eos # (Auto) 0.1 Baso # (Auto) 0.0 Abs Immat Gran (auto) 0.04 H Absolute Neuts (auto) 5.8 Absolute Nucleated RBC 0.050 H Nucleated RBC % (auto) 0.6 H PT INR APTT O2 Saturation ABG pH at Pt Temp ABG pH (Temp Correct) ABG pCO2 at Pt Temp ABG pCO2 (Temp Corrct ABG pO2 at Pt Temp ABG pO2 (Temp Correct ABG HCO3 ABG Base Excess (Actual) VBG pH VBG pCO2 VBG pO2 VBG HCO3 VBG O2 Saturation VBG Base Excess Anion Gap Estim Creat Clear Calc Estimated GFR POC Glucose 69 Random Glucose Lactic Acid Lactic Acid Fup @ 2Hr Calcium Magnesium Total Bilirubin Direct Bilirubin AST ALT Alkaline Phosphatase Ammonia Troponin I High Sens Total Protein Albumin Lipase COVID-19 (PAUL) Negative COVID-19 Clin Com See Note 12/22/20 12/22/20 12/22/20 12:59 12:59 12:59 MCV MCH MCHC RDW Plt Count MPV Immature Gran % (Auto) Neut % (Auto) Lymph % (Auto) Catron % (Auto) Eos % (Auto) Baso % (Auto) Lymph # (Auto) Catron # (Auto) Eos # (Auto) Baso # (Auto) Abs Immat Gran (auto) Absolute Neuts (auto) Absolute Nucleated RBC Nucleated RBC % (auto) PT 16.1 H INR 1.4 H APTT 38.4 H O2 Saturation ABG pH at Pt Temp ABG pH (Temp Correct) ABG pCO2 at Pt Temp ABG pCO2 (Temp Corrct ABG pO2 at Pt Temp ABG pO2 (Temp Correct ABG HCO3 ABG Base Excess (Actual) VBG pH VBG pCO2 VBG pO2 VBG HCO3 VBG O2 Saturation VBG Base Excess Anion Gap Estim Creat Clear Calc Estimated GFR POC Glucose Random Glucose Lactic Acid Lactic Acid Fup @ 2Hr Calcium Magnesium Total Bilirubin Direct Bilirubin AST ALT Alkaline Phosphatase Ammonia 42 Troponin I High Sens 342.5 H* Total Protein Albumin Lipase COVID-19 (PAUL) COVID-19 Clin Com 12/22/20 12/22/20 12/22/20 13:05 13:36 13:43 MCV MCH MCHC RDW Plt Count MPV Immature Gran % (Auto) Neut % (Auto) Lymph % (Auto) Catron % (Auto) Eos % (Auto) Baso % (Auto) Lymph # (Auto) Catron # (Auto) Eos # (Auto) Baso # (Auto) Abs Immat Gran (auto) Absolute Neuts (auto) Absolute Nucleated RBC Nucleated RBC % (auto) PT INR APTT O2 Saturation 89.0 ABG pH at Pt Temp 7.40 ABG pH (Temp Correct) 7.41 ABG pCO2 at Pt Temp 53 H ABG pCO2 (Temp Corrct 52 H ABG pO2 at Pt Temp 66 L ABG pO2 (Temp Correct 65 L ABG HCO3 33 H ABG Base Excess (Actual) 7.7 VBG pH 7.34 VBG pCO2 72 VBG pO2 40 VBG HCO3 39 H VBG O2 Saturation 57.0 VBG Base Excess 10.1 Anion Gap 19 Estim Creat Clear Calc 8.3 Estimated GFR 13 POC Glucose Random Glucose 176 H D Lactic Acid Lactic Acid Fup @ 2Hr Calcium 7.7 L Magnesium Total Bilirubin Direct Bilirubin AST ALT Alkaline Phosphatase Ammonia Troponin I High Sens Total Protein Albumin Lipase COVID-19 (PAUL) COVID-19 Clin Com 12/22/20 12/22/20 12/22/20 13:43 13:43 14:36 MCV MCH MCHC RDW Plt Count MPV Immature Gran % (Auto) Neut % (Auto) Lymph % (Auto) Catron % (Auto) Eos % (Auto) Baso % (Auto) Lymph # (Auto) Catron # (Auto) Eos # (Auto) Baso # (Auto) Abs Immat Gran (auto) Absolute Neuts (auto) Absolute Nucleated RBC Nucleated RBC % (auto) PT INR APTT O2 Saturation ABG pH at Pt Temp ABG pH (Temp Correct) ABG pCO2 at Pt Temp ABG pCO2 (Temp Corrct ABG pO2 at Pt Temp ABG pO2 (Temp Correct ABG HCO3 ABG Base Excess (Actual) VBG pH VBG pCO2 VBG pO2 VBG HCO3 VBG O2 Saturation VBG Base Excess Anion Gap Estim Creat Clear Calc Estimated GFR POC Glucose 134 H Random Glucose Lactic Acid 2.6 H* Lactic Acid Fup @ 2Hr Calcium Magnesium 1.9 Total Bilirubin 2.6 H Direct Bilirubin 1.5 H AST 33 H D ALT 16 Alkaline Phosphatase 73 Ammonia Troponin I High Sens Total Protein 7.5 Albumin 2.5 L D Lipase 9 COVID-19 (PAUL) COVID-19 Clin Com 12/22/20 18:31 MCV MCH MCHC RDW Plt Count MPV Immature Gran % (Auto) Neut % (Auto) Lymph % (Auto) Catron % (Auto) Eos % (Auto) Baso % (Auto) Lymph # (Auto) Catron # (Auto) Eos # (Auto) Baso # (Auto) Abs Immat Gran (auto) Absolute Neuts (auto) Absolute Nucleated RBC Nucleated RBC % (auto) PT INR APTT O2 Saturation ABG pH at Pt Temp ABG pH (Temp Correct) ABG pCO2 at Pt Temp ABG pCO2 (Temp Corrct ABG pO2 at Pt Temp ABG pO2 (Temp Correct ABG HCO3 ABG Base Excess (Actual) VBG pH VBG pCO2 VBG pO2 VBG HCO3 VBG O2 Saturation VBG Base Excess Anion Gap Estim Creat Clear Calc Estimated GFR POC Glucose Random Glucose Lactic Acid Lactic Acid Fup @ 2Hr 2.1 H* Calcium Magnesium Total Bilirubin Direct Bilirubin AST ALT Alkaline Phosphatase Ammonia Troponin I High Sens Total Protein Albumin Lipase COVID-19 (PAUL) COVID-19 Clin Com Imaging Radiologist's Impressions: Impressions Head CT 12/22/20 12:47 IMPRESSION: Old left frontal infarct and question old small right cerebellar infarct. Right otomastoiditis. Chest X-Ray 12/22/20 12:48 IMPRESSION: Limited exam. The patient is rotated to the right. The heart may be enlarged in the thoracic aorta may be tortuous. Abnormal density at the right cardiophrenic angle questionable for atelectasis or infiltrate. Clustered rounded calcifications at the left lung base questionable for calcified mediastinal lymph nodes. Assessment and Plan (1) ESRD (end stage renal disease) on dialysis: Status: Acute Neuro: AMS, patient now alert to self, which family states is patient?s baseline Cardiac: Hypotension: this is likely related to missing her scheduled dialysis today and likely requiring dialysis , do not think this is from severe sepsis as white count is not elevated and lactic acid is shows slightly elevated to 2.6 Elevated lactic: do not think this is from a infectious source, likely elevated due to ESRD Pulmonary: Acute hypoxic respiratory failure- Patient has underlying COPD history, chest x-ray did show some questionable right side atelectasis/ infiltrate But also some questionable congestion. Her white count is not elevated, and no left shift. No fevers and Negative COVID She received cefepime as well as vancomycin in the emergency room. Do not believe this is an infectious source, hypoxia is likely due to pulmonary edema. We will repeat labs to assess emergent dialysis need. Will diurese after labs come back Renal: ESRD- multiple electrolyte abnormalities, with potassium elevated to 5.7, creatinine . Will repeat labs, will corporate counselor nephrology services for possible dialysis. Endo: No acute issues. ID: no acute issues GI: No acute issues. Heme/Onc: No acute issues. Psych: No acute issues. Miscellaneous: No acute issues. Prophylaxis: Heparin Diet: NPO CODE: DNR/DNI Critical care time: x 90 minutes (2) Altered mental status: Qualifiers: Altered mental status type: unspecified Qualified Code(s): R41.82 - Altered mental status, unspecified Status: Acute (3) Acidosis, lactic: Status: Acute (4) Hypotension: Status: Acute (5) KILO (acute kidney injury): Status: Acute (6) Acute respiratory failure with hypoxemia: Status: Acute
--- NOTE | 2020-12-22 21:59 | PC.NURSE ---
ICU UNABLE TO TAKE REPORT WILL RETURN CALL.
--- NOTE | 2020-12-22 22:00 | PC.NURSE ---
PATIENT HAD A LARGE BOWEL MOVEMENT ,PATIENT WAS CLEANED UP BY THIS PCT .
[2020-12-22 22:02] LABS: MANUAL DIFF FLAG NO
[2020-12-22 22:03] LABS: Basophils Percent Auto 0.3 % (0-2); Eosinophils Absolute Auto 0.1 X10*3/uL (0.0-0.4); Eosinophils Percent Auto 0.8 % (0-4); Hematocrit 34.1 % (37-47); Hemoglobin 11.1 g/dl (12.0-16.0); Imm Gran Abs Auto 0.02 X10*3/uL (0.00-0.03); Imm Gran Pct Auto 0.3 % (0.0-0.4); Mean Corpuscular HGB Conc 32.6 g/dl (31.0-35.0); Mean Corpuscular Hemoglobin 31.7 pg (27.0-33.0); Mean Corpuscular Volume 97.4 fL (80-98); Monocytes Absolute Auto 0.7 X10*3/uL (0.1-1.2); Monocytes Percent Auto 9.4 % (2-11); NRBC Pct Auto 0.7 /100WBC (0.0-0.2); Neutrophils Absolute Auto 5.8 X10*3/uL (2.0-8.3); Neutrophils Percent Auto 76.2 % (45-73); Platelet Count 187 X10*3/uL (160-400); Red Cell Distribution Width 20.5 % (11.0-16.0); White Blood Count 7.6 X10*3/uL (4.8-10.8)
--- NOTE | 2020-12-22 22:35 | PC.NURSE ---
REPORT GIVEN TO ICU. PT TO ICU IN STRETCHER ON MONITOR.
[2020-12-22 22:40] LABS: ~Lactic Acid-LAB USE ONLY 2.3 mmol/L (0.5-2.0)
[2020-12-22 22:45] LABS: Alanine Aminotransferase 14 U/L (0-31); Albumin Level 3.5 g/dL (3.5-5.0); Alkaline Phosphatase 68 U/L (39-117); Anion Gap 19 (12-20); Aspartate Amino Transferase 21 U/L (5-31); Bilirubin Total 2.9 mg/dL (0.0-1.0); Blood Urea Nitrogen 21 mg/dL (9-16); Calcium 8.3 mg/dL (8.4-10.2); Carbon Dioxide 25 mmol/L (22-29); Chloride 97 mmol/L (96-108); Creatinine Clr Calc Pharmacy 8.3; Estimated Glomerular Filt Rate 13; Glucose Random 122 mg/dL (60-115); Potassium 4.1 mmol/L (3.3-5.1); Sodium 137 mmol/L (135-145); Total Protein 7.8 g/dL (6.5-8.0)
[2020-12-22 23:50] LABS: Troponin-I High Sensitivity 274.6 ng/L (<3.5-17.0)
[2020-12-23] VITALS (38 sets, daily range): BP systolic 68–140; BP diastolic 38–111; PULSE 60–83; RESP 10–34; TEMP 35.9–37.1; O2SAT 84–98; BMI 30.9; BMI 29.3
[2020-12-23] MEDS: Heparin Sodium,Porcine 5,000 UNIT/ML VIAL 5000 UNIT SUBCUT ×4 (00:57→23:28)
[2020-12-23] MEDS: Albumin Human 25 % 100 ML IV ×3 (00:58→11:47)
[2020-12-23] MEDS: Phenylephrine HCL 20 MG in 0.9 % Sodium Chloride 250 ML 5.43 MG IVCONT (02:12)
[2020-12-23 05:32] LABS: MANUAL DIFF FLAG NO
[2020-12-23 05:39] LABS: Basophils Percent Auto 0.4 % (0-2); Eosinophils Absolute Auto 0.1 X10*3/uL (0.0-0.4); Hematocrit 31.5 % (37-47); Hemoglobin 10.2 g/dl (12.0-16.0); Imm Gran Abs Auto 0.04 X10*3/uL (0.00-0.03); Imm Gran Pct Auto 0.5 % (0.0-0.4); Lymphocytes Absolute Auto 0.9 X10*3/uL (1.2-4.9); Lymphocytes Percent Auto 10.9 % (20-40); Mean Corpuscular HGB Conc 32.4 g/dl (31.0-35.0); Mean Corpuscular Hemoglobin 31.1 pg (27.0-33.0); Mean Platelet Volume 11.3 fL (9.4-12.3); Monocytes Absolute Auto 0.9 X10*3/uL (0.1-1.2); NRBC Pct Auto 0.6 /100WBC (0.0-0.2); Neutrophils Absolute Auto 6.3 X10*3/uL (2.0-8.3); Neutrophils Percent Auto 76.2 % (45-73); Platelet Count 183 X10*3/uL (160-400); Red Blood Count 3.28 X10*6/uL (4.20-5.50); Red Cell Distribution Width 20.1 % (11.0-16.0); White Blood Count 8.3 X10*3/uL (4.8-10.8)
[2020-12-23 06:12] LABS: Albumin Level 3.4 g/dL (3.5-5.0); Anion Gap 20 (12-20); Blood Urea Nitrogen 22 mg/dL (9-16); Calcium 8.3 mg/dL (8.4-10.2); Carbon Dioxide 22 mmol/L (22-29); Chloride 98 mmol/L (96-108); Creatinine Clr Calc Pharmacy 13.9; Estimated Glomerular Filt Rate 12; Glucose Random 108 mg/dL (60-115); Magnesium 1.9 mg/dL (1.6-2.6); Phosphorus 2.2 mg/dL (2.7-4.5); Potassium 3.8 mmol/L (3.3-5.1); Sodium 136 mmol/L (135-145)
--- NOTE | 2020-12-23 06:23 | PC.NURSE ---
CARE ASSUMED 23;15...LETHARGIC...WEAKLY MOVES ARMS BUT NOT TO COMMAND...NON-VERBAL...ATRIAL FIB WITH OCCASSIONAL V-PACED BEATS...RESPIRATIONS EASY...LUNGS DIMINISHED LOWER LINO...REMAINS 100% NRB MASK...MARKED DIFFICULTY OBTAINING SAO2 WAVEFORM...96-97% WHEN BRIEFLY OBTAINED...SBP 80'S..ALBUMEN INFUSED PER MAR W/O EFFECT...NEOSYNEPHRINE HUNG AND TITRATED TO 0.6 MCG/KG/MIN...SBP 80'S-90'S...MAP >60...ICU HAND SHAPER STATES TO TITRATE FOR MAP >60...INCONTINANT SMALL SMEARING BLACK STOOL...HNV OVERNIGHT...DAUGHTER PRESENT..STATES PATIENT DOES NOT VOID AT BASE-LINE D/T DIALYSIS STATUS...LEFT ARM FISTULA (+) BRUIT...CONTINUES NARCAN DRIP PER MAR 0.5 MG/HR...STAGE 2 WOUND TO COCCYX (SEE PHOTO)
--- NOTE | 2020-12-23 06:58 | P.CDIC_ITS ---
CDI Concurrent Query Service Date: 12/23/20 Documentation Clarification: Please clarify if you are treating a proba ble/suspected/likely or confirmed: Metabolic encephalopathy, resolved poa Toxic encephalopathy Please specify if known or undetermined Provider Response: Other Other Diagnosis: Toxic encephalopathy PLEASE DO NOT DELETE/MODIFY EXISTING CONTENT Additional information is needed in order to code to the highest accuracy and appropriate Severity of Illness (SOI). Please clarify the information noted below in your progress notes and discharge summary. Risk Factors/Clinical Indicators/Treatments Altered mental status, abnormal speech, confused, hypotensive. Narcan drip Patient on percocet and ativan at home. electrolyte abnormalities CDS: Veronika Barragan CCS, CDIS Contact Number: [phone] Please Review the information above and exercise your independent professional judgment in responding to the query. If you concur, pleas document in the PROGRESS NOTES and DISCHARGE SUMMARY. If you do not agree with the query, please document in the query above. THIS QUERY IS PART OF THE PERMANENT MEDICAL RECORD
--- NOTE | 2020-12-23 07:02 | P.CDIC_ITS ---
CDI Concurrent Query Service Date: 12/23/20 Documentation Clarification: Please clarify if you are treating a proba ble/suspected/likely or confirmed: Labs: Hyperkalemia Please specify if known or undetermined PLEASE DO NOT DELETE/MODIFY EXISTING CONTENT Additional information is needed in order to code to the highest accuracy and appropriate Severity of Illness (SOI). Please clarify the information noted below in your progress notes and discharge summary. Risk Factors/Clinical Indicators/Treatments LAB FINDINGS: potassium CDS: Veronika Barragan Contact Number: Please Review the information above and exercise your independent professional judgment in responding to the query. If you concur, pleas document in the PROGRESS NOTES and DISCHARGE SUMMARY. If you do not agree with the query, please document in the query above. THIS QUERY IS PART OF THE PERMANENT MEDICAL RECORD
[2020-12-23 07:26] LABS: VBG Base Excess 5.9 mmol/L; VBG HCO3 32 mmol/L (22-26); VBG pCO2 53 mmHg; VBG pH 7.38 (7.32-7.43); VBG pO2 44 mmHg
--- NOTE | 2020-12-23 07:33 | P.CDIC_ITS ---
CDI Concurrent Query Service Date: 12/23/20 Documentation Clarification: Please clarify if you are treating a proba ble/suspected/likely or confirmed: Consistency and clarity of documentation within the medical record: BMI Underweight Malnutrition, mild, moderate or severe Please specify if known or undetermined Provider Response: Other Other Diagnosis: Moderate protein calorie malnutrition. PLEASE DO NOT DELETE/MODIFY EXISTING CONTENT Additional information is needed in order to code to the highest accuracy and appropriate Severity of Illness (SOI). Please clarify the information noted below in your progress notes and discharge summary. Risk Factors/Clinical Indicators/Treatments ED: BMI noted to be 14.0 ICU progress note BMI 14.0 EMR admit eval BMI noted to be 31.0 CDS: Veronika Barragan CCS, CDIS Contact Number: [phone] Please Review the information above and exercise your independent professional judgment in responding to the query. If you concur, pleas document in the PROGRESS NOTES and DISCHARGE SUMMARY. If you do not agree with the query, please document in the query above. THIS QUERY IS PART OF THE PERMANENT MEDICAL RECORD
--- NOTE | 2020-12-23 08:00 | CA_ITS ---
Transthoracic Echocardiogram Patient (Last, First, Middle): Farhana Mane, Gender: Female Date of : 1950 Age: 70 Procedure Date: 12/23/2020 Procedure Type: Transthoracic Echocardiogram Location: ICU Height: 160.02 cm Weight: 74.84 kg BSA: 1.78 m2 Heart Rate: bpm BP: 83 / 53 mmHg Label Maker: MELODIE Referring MD: Wilman Castaneda MD Symptoms: dyspnea Study Quality: Fair/contrast Conclusions: - Normal left ventricular size and systolic function. - There is severely increased left ventricular wall thickness. - There is a flattened septum in systole and diastole consistent with right ventricular pressure and volume overload. - Severely increased right ventricular cavity size. There is moderate to severely decreased right ventricular systolic function. There is a pacemaker wire seen in the right ventricle. - There is mild aortic valve stenosis. - There is moderate to severe mitral valve stenosis. - There is severe tricuspid valve regurgitation. Significantly elevated right atrial pressure. Mild pulmonary hypertension is present. There is apical tethering of the tricuspid valve leaflets. Findings Procedure Information Contrast agent, definity, is being given per protocol without apparent complications. Left Ventricle Normal left ventricular size and systolic function. There is severely increased left ventricular wall thickness. The visually estimated ejection fraction is between 55-60%. There is no evidence of regional wall motion abnormalities. There is a flattened septum in systole and diastole consistent with right ventricular pressure and volume overload. Diastolic function is indeterminate on the basis of available data. Right Ventricle Severely increased right ventricular cavity size. There is moderate to severely decreased right ventricular systolic function. There is a pacemaker wire seen in the right ventricle. Atria Severe biatrial enlargement. Aortic Valve There is moderate calcification of the aortic valve. There is moderate thickening of the aortic valve. There is mild aortic valve stenosis. The peak aortic velocity is 2.05 m/s. The aortic valve area is 1.46 cm2. There is mild aortic valve regurgitation. Mitral Valve There is severe mitral annular calcification. There is mild to moderate mitral valve regurgitation. There is moderate to severe mitral valve stenosis. The calculated mitral valve area by pressure half time is 1.53 cm2. Pulmonic Valve The pulmonic valve is likely normal. Tricuspid Valve There is severe tricuspid valve regurgitation. Significantly elevated right atrial pressure. Mild pulmonary hypertension is present. There is apical tethering of the tricuspid valve leaflets. Great Vessels The pulmonary artery was not well visualized. There is mild dilatation of the ascending aorta. Venous The inferior vena cava is dilated and does not collapse with inspiration. Pericardium/Pleural There is no evidence of pericardial effusion. Prior Study Comparison No prior study available for comparison. Measurements 2D Linear Measurements IVSd: 1.37 0.6-0.9/0.6-1.0 cm LVIDd: 4.44 3.9-5.3/4.2-5.9 cm LVIDd Index: 2.49 2.4-3.2/2.2-3.1 cm/m2 LVIDs: 3.18 2.0-3.6 cm LVPWd: 1.34 0.7-1.1 cm Ao Root: 3.20 2.1-3.5 cm LA Diam: 4.70 2.7-3.8/3.0-4.0 cm LAIDs Index: 2.64 1.5-2.3 cm/m2 LV Mass: 289.12 67-162/88-224 g LV Mass Index: 162.43 43-95/49-115 g/m2 LVOT Diam: 2.10 3.0+(-)1.3 cm Mitral Valve MV VTI: 0.62 MV Pk Je: 1.94 MV Mn Je: 1.18 MV Pk Grad: 15.00 MV Mn Grad: 7.00 PHT: 144.00 MVA PHT: 1.53 MVA Continuity: 0.89 Decel Spencer: 3.94 Aortic Valve AoV Pk Je: 2.05 AoV Mn Je: 1.32 AoV VTI: 0.38 AoV Pk Grad: 17.00 Aov Mn Grad: 8.00 SLIME Cont.VTI: 1.46 LVOT LVOT Pk Je: 0.85 LVOT Mn Je: 0.49 LVOT VTI: 0.16 LVOT Pk Grad: 3.00 LVOT Mn Grad: 1.00 LVOT Diam: 2.10 LVOT Area: 3.46 Tricuspid Valve TR Pk Je: 2.67 TR Pk Grad: 29.00 RA Press: 15.00 RVSP: 44.00 Great Vessels Aorta Ao Root-2D: 3.20 2.0-3.7 cm Ao Asc: 3.70 2.1-3.4 cm Updated in Other Vendor System with Status of Final Boo King MD electronically signed on 12/23/2020 4:22:53 PM with status of Final
[2020-12-23] MEDS: Midodrine HCl 10 MG TABLET PO ×2 (09:55→16:02)
[2020-12-23] MEDS: Phenylephrine HCL 20 MG in 0.9 % Sodium Chloride 250 ML 16.3 MG IVCONT (10:10)
[2020-12-23 10:42] LABS: Venous Blood Gas Refer to POC result
--- NOTE | 2020-12-23 10:56 | CONS_ITS ---
DATE OF SERVICE: 12/23/2020 REASON FOR CONSULTATION: I was called to see this patient to assist in management of patient dialysis requirements. HISTORY OF PRESENT ILLNESS: To summarize, Farhana is well known to us. She is a 70-year-old woman with a history of ESRD, on maintenance hemodialysis 3 times a week. She was recently started on dialysis. She underwent dialysis yesterday, but she was persistently hypotensive with some change in mentation, therefore, she was sent to the emergency room. She is currently in the ICU. She is on pressors and she is on non-rebreather with hypoxia and this consultation has been requested for her ultrafiltration. PAST MEDICAL HISTORY: Ongoing medical problems include history of ESRD on maintenance hemodialysis Monday, , Monday; peripheral vascular disease; history of dementia; hypertension; heart failure; chronic obstructive pulmonary disease; history of pacemaker placement. SOCIAL HISTORY: There is no history of any smoking or alcohol abuse at present. PAST SURGICAL HISTORY: Status post pacemaker placement. ALLERGIES: SHE IS ALLERGIC TO LATEX AND FLUOXETINE. MEDICATIONS: At the time of admission included Tylenol, aspirin, Auryxia with meals, gabapentin, hydroxyzine, lorazepam, midodrine 10 mg, oxycodone, sertraline, B complex. REVIEW OF SYSTEMS: Not obtainable from the patient due to her mentation. PHYSICAL EXAMINATION: GENERAL: Today, Farhana appears ill. She is on non-rebreather, not verbalizing. NECK: Supple. LUNGS: Bilateral crackles. HEART: S1, S2 irregular. No gallop or rub. ABDOMEN: Soft, nontender. NEURO: She responds to pain, not verbalizing. No involuntary movements. VITAL SIGNS: Blood pressure was 82/51 with pressors. LABORATORY DATA: Hemoglobin 10.2, WBCs 8.3, platelet count of 183. Serum electrolytes were normal with potassium of 3.8, creatinine 3.63, calcium 8.3, phosphorus 2.2. Troponin I of 274. IMPRESSION: A 70-year-old woman with end-stage renal disease, admitted with hypoxemia, impending respiratory failure, and persistent hypotension. Farhana has ESRD and she did not complete the treatment yesterday. She does have evidence of fluid overload. I agree with the trial of ultrafiltration to see if the hypoxemia improves. In the meantime, we will administer IV albumin prior to dialysis and continue with the pressors to maintain systolic blood pressure more than 90 mmHg. At the present time, the overall prognosis is guarded. We will follow along with the team. MD JAYCEE Ramey/MODWilian / [id number]
--- NOTE | 2020-12-23 12:16 | MHC.CM.PN ---
Pt admitted to ICU from [facility] where she has been a STR resident since the end of September. She is HD dependent, dementia at baseline. A MOLST was completed on 12/22 in the ED and a HCP copy has been requested from [facility] and pt's dtr, Maddi. Per Maddi, pt had been at home being cared for by herself and family until pt was admitted to [facility] and then to [facility] in September. Dtr interested in taking pt home with [facility] (pt is affiliated with [facility] providers) and not returning to [facility]. Hospice informational referral placed. Pt will receive HD today in ICU and continuation of care will be dependent on family decisions re: goals of care. MD to discuss with Maddi today. CM to follow for d/c planning. IMM 12/23
[2020-12-23] MEDS: fentaNYL citrate/PF 100 MCG/2 ML VIAL 25 MCG IVPUSH ×2 (13:00→15:59)
--- NOTE | 2020-12-23 13:56 | PM.CCPN ---
Subjective Subjective Date of Service: 12/23/20 Interval History: 70-year-old lady with underlying end-stage renal disease on hemodialysis, PVD, cardiomyopathy with chronic hypotension, status post permanent pacemaker dementia, hypertension, and COPD admitted on 12/22/2020 with hypotension, alteration of mental status, hypoxemia, and intolerant of dialysis. Patient has had some improvement in her mentation after administration of Narcan. Her blood pressure only modestly improved with colloidal support and she required initiation of pressors. No evidence of sepsis, her hypotension is secondary to underlying advanced cardiomyopathy. Critical Care Time (minutes): 60 Physical Exam Vital Signs: Vital Signs: Last Vital Signs Temp 96.9 F 12/23/20 12:00 Pulse 63 12/23/20 13:00 Resp 13 12/23/20 13:00 BP 140/111 H 12/23/20 13:21 Pulse Ox 87 L 12/23/20 13:00 Body Mass Index 29.3 Const: General: no acute distress, alert and awake Eyes: Sclerae: sclerae normal EOM: EOMs intact bilaterally Neck: Neck: Yes no lymphadenopathy, Yes trachea midline and Yes supple Resp: Effort & Inspection: no respiratory distress Auscultation: crackles (Diffuse bilateral) Cardio: Rate: regular rate Rhythm: regular rhythm Heart sounds: no gallops, no murmurs and no rubs GI: Palpation (GI): Soft to palpation and Other GI palpation findings present ( Nontender) Auscultation: normal bowel sounds Extrem: General: No clubbing, No cyanosis and Yes pedal edema (Trace bilateral) Objective Data Labs CBC & Chem 7: 12/23/20 05:22 12/23/20 05:22 Labs: Laboratory Results - last 24 hr 12/22/20 12/22/20 12/22/20 12:59 13:43 13:43 WBC RBC Hgb Hct MCV MCH MCHC RDW Plt Count MPV Immature Gran % (Auto) Neut % (Auto) Lymph % (Auto) [place] % (Auto) Eos % (Auto) Baso % (Auto) Lymph # (Auto) [place] # (Auto) Eos # (Auto) Baso # (Auto) Abs Immat Gran (auto) Absolute Neuts (auto) Absolute Nucleated RBC Nucleated RBC % (auto) VBG pH VBG pCO2 VBG pO2 VBG HCO3 VBG O2 Saturation VBG Base Excess Sodium 135 Potassium 5.7 H D Chloride 97 Carbon Dioxide 25 Anion Gap 19 BUN 20 H Creatinine 3.44 H Estim Creat Clear Calc 8.3 Estimated GFR 13 POC Glucose Random Glucose 176 H D Lactic Acid Lactic Acid Fup @ 2Hr Lactic Acid Fup @ 4Hr Calcium 7.7 L Phosphorus Magnesium 1.9 Total Bilirubin 2.6 H Direct Bilirubin 1.5 H AST 33 H D ALT 16 Alkaline Phosphatase 73 Troponin I High Sens 342.5 H* Total Protein 7.5 Albumin 2.5 L D Lipase 9 12/22/20 12/22/20 12/22/20 13:43 14:36 18:31 WBC RBC Hgb Hct MCV MCH MCHC RDW Plt Count MPV Immature Gran % (Auto) Neut % (Auto) Lymph % (Auto) [place] % (Auto) Eos % (Auto) Baso % (Auto) Lymph # (Auto) [place] # (Auto) Eos # (Auto) Baso # (Auto) Abs Immat Gran (auto) Absolute Neuts (auto) Absolute Nucleated RBC Nucleated RBC % (auto) VBG pH VBG pCO2 VBG pO2 VBG HCO3 VBG O2 Saturation VBG Base Excess Sodium Potassium Chloride Carbon Dioxide Anion Gap BUN Creatinine Estim Creat Clear Calc Estimated GFR POC Glucose 134 H Random Glucose Lactic Acid 2.6 H* Lactic Acid Fup @ 2Hr 2.1 H* Lactic Acid Fup @ 4Hr Calcium Phosphorus Magnesium Total Bilirubin Direct Bilirubin AST ALT Alkaline Phosphatase Troponin I High Sens Total Protein Albumin Lipase 12/22/20 12/22/20 12/22/20 21:57 21:57 21:57 WBC 7.6 RBC 3.50 L Hgb 11.1 L Hct 34.1 L MCV 97.4 MCH 31.7 MCHC 32.6 RDW 20.5 H Plt Count 187 MPV 11.0 Immature Gran % (Auto) 0.3 Neut % (Auto) 76.2 H Lymph % (Auto) 13.0 L [place] % (Auto) 9.4 Eos % (Auto) 0.8 Baso % (Auto) 0.3 Lymph # (Auto) 1.0 L [place] # (Auto) 0.7 Eos # (Auto) 0.1 Baso # (Auto) 0.0 Abs Immat Gran (auto) 0.02 Absolute Neuts (auto) 5.8 Absolute Nucleated RBC 0.050 H Nucleated RBC % (auto) 0.7 H VBG pH VBG pCO2 VBG pO2 VBG HCO3 VBG O2 Saturation VBG Base Excess Sodium 137 Potassium 4.1 D Chloride 97 Carbon Dioxide 25 Anion Gap 19 BUN 21 H Creatinine 3.46 H Estim Creat Clear Calc 8.3 Estimated GFR 13 POC Glucose Random Glucose 122 H Lactic Acid Lactic Acid Fup @ 2Hr Lactic Acid Fup @ 4Hr 2.3 H* Calcium 8.3 L D Phosphorus Magnesium Total Bilirubin 2.9 H Direct Bilirubin AST 21 ALT 14 Alkaline Phosphatase 68 Troponin I High Sens Total Protein 7.8 Albumin 3.5 D Lipase 12/22/20 12/22/20 12/23/20 21:57 23:08 05:22 WBC 8.3 RBC 3.28 L Hgb 10.2 L Hct 31.5 L MCV 96.0 MCH 31.1 MCHC 32.4 RDW 20.1 H Plt Count 183 MPV 11.3 Immature Gran % (Auto) 0.5 H Neut % (Auto) 76.2 H Lymph % (Auto) 10.9 L [place] % (Auto) 11.0 Eos % (Auto) 1.0 Baso % (Auto) 0.4 Lymph # (Auto) 0.9 L [place] # (Auto) 0.9 Eos # (Auto) 0.1 Baso # (Auto) 0.0 Abs Immat Gran (auto) 0.04 H Absolute Neuts (auto) 6.3 Absolute Nucleated RBC 0.050 H Nucleated RBC % (auto) 0.6 H VBG pH VBG pCO2 VBG pO2 VBG HCO3 VBG O2 Saturation VBG Base Excess Sodium Cancelled Potassium Cancelled Chloride Cancelled Carbon Dioxide Cancelled Anion Gap Cancelled BUN Cancelled Creatinine Cancelled Estim Creat Clear Calc Cancelled Estimated GFR Cancelled POC Glucose Random Glucose Cancelled Lactic Acid Lactic Acid Fup @ 2Hr Lactic Acid Fup @ 4Hr Calcium Cancelled Phosphorus Magnesium Total Bilirubin Direct Bilirubin AST ALT Alkaline Phosphatase Troponin I High Sens 274.6 H* Total Protein Albumin Cancelled Lipase 12/23/20 12/23/20 05:22 07:19 WBC RBC Hgb Hct MCV MCH MCHC RDW Plt Count MPV Immature Gran % (Auto) Neut % (Auto) Lymph % (Auto) [place] % (Auto) Eos % (Auto) Baso % (Auto) Lymph # (Auto) [place] # (Auto) Eos # (Auto) Baso # (Auto) Abs Immat Gran (auto) Absolute Neuts (auto) Absolute Nucleated RBC Nucleated RBC % (auto) VBG pH 7.38 VBG pCO2 53 VBG pO2 44 VBG HCO3 32 H VBG O2 Saturation 68.0 VBG Base Excess 5.9 Sodium 136 Potassium 3.8 Chloride 98 Carbon Dioxide 22 Anion Gap 20 BUN 22 H Creatinine 3.63 H Estim Creat Clear Calc 13.9 Estimated GFR 12 POC Glucose Random Glucose 108 Lactic Acid Lactic Acid Fup @ 2Hr Lactic Acid Fup @ 4Hr Calcium 8.3 L Phosphorus 2.2 L Magnesium 1.9 Total Bilirubin Direct Bilirubin AST ALT Alkaline Phosphatase Troponin I High Sens Total Protein Albumin 3.4 L Lipase Progress Note: A&P Assessment and plan (1) Acute respiratory failure with hypoxemia: Status: Acute Assessment and Plan: Assessment: 70-year-old lady with underlying advanced cardiomyopathy, end-stage renal disease on hemodialysis, and dementia admitted with hypotension, acute hypoxic respiratory failure, alteration of mental status, and intolerance of dialysis Plan: Neuro: Alteration of mental status secondary to lingering chronic opioids for underlying chronic like pain on the background of of incomplete dialysis. Improved with Narcan. Cardiac: Cardiogenic shock secondary to underlying advanced cardiomyopathy. Appears to be terminal. Objective evaluation with 2D echocardiogram is pending. Continue with pressor support. Pulmonary: Acute hypoxic respiratory failure secondary to pulmonary edema secondary to incomplete dialysis and advanced cardiomyopathy. Continue with supplemental oxygen support. Renal: End-stage renal disease on hemodialysis. Nephrology service care appreciated. Endo: No acute issues. GI: No acute issues. ID: No evidence of sepsis. Heme/Onc: No acute issues. Psych: No acute issues. Miscellaneous: No acute issues. Family discussion of goals of care are in progress. Prophylaxis: Heparin Diet: Regular Critical care time spent: 60 minutes (2) Hypotension: Status: Acute (3) ESRD (end stage renal disease) on dialysis: Status: Acute (4) Cardiomyopathy: Status: Acute (5) Dementia: Status: Inactive (6) PVD (peripheral vascular disease): Status: Inactive (7) Toxic encephalopathy: Status: Acute (8) Cardiogenic shock: Status: Acute
[2020-12-23] MEDS: fentaNYL citrate/NS 1,000 MCG/100 ML PLAST..BAG 2.5 MCG IVCONT (14:10)
[2020-12-23] MEDS: Phenylephrine HCL 20 MG in 0.9 % Sodium Chloride 250 ML 8.15 MG IVCONT (17:08)
[2020-12-23] MEDS: Phenylephrine HCL 20 MG in 0.9 % Sodium Chloride 250 ML 21.73 MG IVCONT (23:31)
[2020-12-23] MEDS: fentaNYL citrate/NS 1,000 MCG/100 ML PLAST..BAG 10 MCG IVCONT (23:42)
[2020-12-24] VITALS (11 sets, daily range): BP systolic 63–127; BP diastolic 41–57; PULSE 74–129; RESP 9–20; TEMP 36.9; BMI 31.8
[2020-12-24] MEDS: LORazepam 2 MG/ML VIAL 1 MG IVPUSH (02:00)
--- NOTE | 2020-12-24 02:19 | PC.NURSE ---
Addendum entered by Sunny Figueroa RN 12/24/20 06:43: REMAINS SEDATE SINCE RX ATIVAN...FENTANYL WEANED TO 100 MCG/HR Addendum entered by Sunny Figueroa RN 12/24/20 04:09: DON'T LET THEM TOUCH ME --NOT TOUGH ME Original Note: CARE ASSUMED 23:15...FENTANYL DRIP 50 MCG/HR....SBP 70'S-LOW 80'S...MAP >50...NEOSYNEPHRINE 0.8 MCG/KG/MIN...ICU RN CONCURRENT REVIEW CONFIRMS BP GOAL MAP>50 FOR NEOSYNEPHRINE TITRATION...PATIENT AWAKE...DISORIENTATED/AGITATED/RESTLESS...STATED MY LEGS HURT --- DON'Y LET THEM TOUGH ME ....DAUGHTER AT BEDSIDE...PATIENT PULLING OFF 100% NRB MASK...REMAIN UNABLE TO OBTAIN SAO2 READINGS...FENTANYL DRIP TITRATED UP TO 100 MCG/HR WITH GRADUAL TRANSIENT EFFECT...DOZED X45 ...FAMILY ARRIVED FROM [place] AND AT BEDSIDE...PATIENT AWAKE/AGITATED/PULLING OFF NRB MASK AND PULLING ON JUGULAR IV LINES...FENTANYL DRIP TITRATED TO 200 MCG/HR W/O EFFECT...ICU RN CONCURRENT REVIEW PRESENT...SPOKE WITH FAMILY....ATIVAN 1 MG IV GIVEN STAT PER RN CONCURRENT REVIEW WITH EFFECT...PATIENT DOZING AFTER ATIVAN..NO DISTRESS...BP UNCHANGED POST ATIVAN...ATRIAL FIB WITH OCCASSIONAL PACED BEATS
[2020-12-24] MEDS: fentaNYL citrate/NS 1,000 MCG/100 ML PLAST..BAG 20 MCG IVCONT (04:55)
[2020-12-24] MEDS: Phenylephrine HCL 20 MG in 0.9 % Sodium Chloride 250 ML 21.73 MG IVCONT (04:55)
[2020-12-24 05:27] LABS: VBG Base Excess -0.4 mmol/L; VBG HCO3 30 mmol/L (22-26); VBG pCO2 80 mmHg; VBG pH 7.18 (7.32-7.43); VBG pO2 55 mmHg
[2020-12-24 05:35] LABS: Venous Blood Gas Refer to POC result
[2020-12-24 05:55] LABS: MANUAL DIFF FLAG NO
[2020-12-24 05:58] LABS: Basophils Percent Auto 0.4 % (0-2); Eosinophils Absolute Auto 0.1 X10*3/uL (0.0-0.4); Eosinophils Percent Auto 0.9 % (0-4); Hematocrit 33.5 % (37-47); Hemoglobin 10.8 g/dl (12.0-16.0); Imm Gran Abs Auto 0.07 X10*3/uL (0.00-0.03); Imm Gran Pct Auto 0.9 % (0.0-0.4); Lymphocytes Absolute Auto 0.9 X10*3/uL (1.2-4.9); Lymphocytes Percent Auto 10.7 % (20-40); Mean Corpuscular HGB Conc 32.2 g/dl (31.0-35.0); Mean Corpuscular Hemoglobin 31.5 pg (27.0-33.0); Mean Corpuscular Volume 97.7 fL (80-98); Mean Platelet Volume 11.4 fL (9.4-12.3); Monocytes Absolute Auto 1.1 X10*3/uL (0.1-1.2); Monocytes Percent Auto 12.8 % (2-11); Neutrophils Absolute Auto 6.1 X10*3/uL (2.0-8.3); Neutrophils Percent Auto 74.3 % (45-73); Platelet Count 193 X10*3/uL (160-400); Red Blood Count 3.43 X10*6/uL (4.20-5.50); Red Cell Distribution Width 20.7 % (11.0-16.0); White Blood Count 8.2 X10*3/uL (4.8-10.8)
[2020-12-24 06:09] LABS: NRBC Pct Auto 2.4 /100WBC (0.0-0.2)
[2020-12-24 06:25] LABS: Albumin Level 3.8 g/dL (3.5-5.0); Anion Gap 18 (12-20); Blood Urea Nitrogen 27 mg/dL (9-16); Calcium 8.5 mg/dL (8.4-10.2); Carbon Dioxide 27 mmol/L (22-29); Chloride 99 mmol/L (96-108); Creatinine Clr Calc Pharmacy 11.5; Estimated Glomerular Filt Rate 10; Glucose Random 62 mg/dL (60-115); Magnesium 1.9 mg/dL (1.6-2.6); Phosphorus 3.4 mg/dL (2.7-4.5); Potassium 4.3 mmol/L (3.3-5.1); Sodium 140 mmol/L (135-145)
[2020-12-24] MEDS: Albumin Human 25 % 100 ML IV ×2 (08:38→09:55)
--- NOTE | 2020-12-24 08:49 | W.PM.DNNEP ---
Subjective Subjective This patient was seen during dialysis. Interval history: Had UF yesterday Physical Exam Vital Signs: Vital Signs: Last Vital Signs Temp 98.4 F 12/24/20 07:55 Pulse 129 H 12/24/20 07:55 Resp 20 12/24/20 07:55 BP 127/57 L 12/24/20 07:55 Pulse Ox 84 L 12/23/20 20:27 Body Mass Index 31.8 Const: General: ill appearing Assessment & Plan Assessment and plan (1) ESRD (end stage renal disease) on dialysis: Status: Acute Assessment and Plan: HD today per protocol Remains hypotensive Prognosis poor Consider [employer] Time Spent With Patient Time: Total time spent is greater than 50% in coordination of care (as documented) at patient's floor/unit and/or counseling patient: Procedures Date of Service Date of Service: 12/24/20
--- NOTE | 2020-12-24 10:03 | MHC.CLN ---
F/U PT DIET ADVANCED TO REGULAR PT WITH INCREASED NUTRITION NEEDS R/T HD AND PRESSURE INJURY RECOMMEND ADDING ENSURE CLEAR BID AND FRANK BID SUPPLEMENT TO PROVIDE 640KCALS, 21G PROTEIN MONITOR PO INTAKE CLOSELY
[2020-12-24] MEDS: Phenylephrine HCL 20 MG in 0.9 % Sodium Chloride 250 ML 54.32 MG IVCONT (10:16)
--- NOTE | 2020-12-24 11:09 | MHC.CM.PN ---
Pt passed during hemodialysis this am. Family will be in to see pt and [facility] was notified of pt's passing.
--- NOTE | 2020-12-24 11:55 | PM.DDS ---
Discharge Sum: Prov Provider Primary care physician: Zena Mosley NP Consults: 12/23/20 07:59 Consult to Nephrology Routine Consulting Provider: [facility] Reason for consultation: Dialysis Has provider been notified: No Discharge Sum: Diag PCOD Cause of : Cardiogenic shock Contributing Factors (1) ESRD (end stage renal disease) on dialysis: Discharge Sum: Summary Date and Time Date of admission: 12/22/20 21:39 Date of : 12/24/20 Time of : 10:23 Summary Details: 70-year-old lady with underlying end-stage renal disease on hemodialysis, PVD, cardiomyopathy with chronic hypotension, status post permanent pacemaker dementia, hypertension, and COPD in DNR/DNI code status admitted on 12/22/2020 with hypotension, alteration of mental status, hypoxemia, and intolerance of dialysis. Patient has had some improvement in her mentation after administration of Narcan. Her blood pressure only modestly improved with colloidal support and she required initiation of pressors for cardiogenic shock secondary to progressive right heart failure on the background of cardiorenal syndrome and end-stage renal disease. No evidence of sepsis, her hypotension was secondary to underlying advanced cardiomyopathy. Overnight /2-6/3 patient with increasing pressor requirements secondary to cardiogenic shock secondary to end-stage right-sided heart failure culminating in bradycardic cardiac arrest at 10:23 a.m. on 12/24/2020. On my exam patient with no spontaneous respiration, pulse, cough, or gag reflex. Family notified. Discharge diagnoses: Cardiogenic shock Acute on chronic right-sided end-stage heart failure End-stage renal disease Toxic encephalopathy COPD PVD Additional Data Confirmation of as documented by pronouncing clinician: no pulse, no respirations, no heart sounds and pupils fixed and dilated Family: contacted Attending physician: Wilman Castaneda MD Was code activated?: No Advance directives: Yes Hospice patient?: No
== END 2020-12-24 15:51 | disposition expired | DRG 291 ==
LOC: HO.ED 18:15 → HO.ICU 21:50
PROVIDERS: Emergency Medicine; Admitting Provider Registered Nurse Community Health; Emergency Provider Emergency Medicine Emergency Medical Services; PCP Nurse Practitioner Family; Visit Provider Internal Medicine Pulmonary Disease
DX: I13.2 Hypertensive heart and chronic kidney disease with heart failure and with stage 5 chronic kidney disease, or end stage renal disease (principal); N18.6 End stage renal disease; G92 Toxic encephalopathy; E87.2 Acidosis; E44.0 Moderate protein-calorie malnutrition; E78.5 Hyperlipidemia, unspecified; I42.9 Cardiomyopathy, unspecified; F03.90 Unspecified dementia, unspecified severity, without behavioral disturbance, psychotic disturbance, mood disturbance, and anxiety; Z20.822 Contact with and (suspected) exposure to COVID-19; I95.89 Other hypotension; R57.0 Cardiogenic shock; Z99.2 Dependence on renal dialysis; J44.9 Chronic obstructive pulmonary disease, unspecified; I50.813 Acute on chronic right heart failure; I73.9 Peripheral vascular disease, unspecified; Z68.31 Body mass index [BMI] 31.0-31.9, adult; Z95.0 Presence of cardiac pacemaker; Z79.82 Long term (current) use of aspirin; Z79.891 Long term (current) use of opiate analgesic; Z79.899 Other long term (current) drug therapy; Z66 Do not resuscitate
CPT/HCPCS: 36415; 70450; 71045; 71250; 80048; 80053; 80076; 82040; 82140; 82947; 83605; 83690; 83735; 84100; 84484; 85025; 85610; 85730; 87040; 87635; 90999; 93005; 93306; 94640; 96365; 96366; 96368; 99285; 99291; J0610; J0692; J2060; J2370; J3010; J3370; P9047